=== PATIENT | male | born 1940 | race Caucasian/White ===

== ENCOUNTER → 2016-06-24 10:56 | Outpatient (CLI) | payer MEDICARE, BC ==
[2014-12-08 06:24] VITALS: BMI 22.9
[~2016-06-24 10:56] MED LIST: ASPIRIN 81 MG E81 MG PO; AVAPRO300 MG PO; AVODART0.5 MG PO; CARBIDOPA-LEVO1 EAC2 PO; HYDROCODONE-APA1 TAB PO; NORVASC2.5 MG PO; PLAVIX75 MG PO; SINEMET 25/1001 TAB PO; SINEMET CR 50-1 EACH PO
== END | disposition home or self-care (01) ==
LOC: D.MRI 10:56
DX: G20 Parkinson's disease (principal); M62.81 Muscle weakness (generalized)

== ENCOUNTER → 2016-10-08 09:14 | Outpatient (CLI) | payer MEDICARE, BC ==
[2014-12-08 06:24] VITALS: BMI 22.9
== END | disposition home or self-care (01) ==
LOC: D.CT 09:14
DX: G70.00 Myasthenia gravis without (acute) exacerbation (principal)